=== PATIENT | female | born 1970 | race Caucasian/White ===

== ENCOUNTER → 2016-12-10 | Outpatient (CLI) | payer BC ==
--- NOTE | ~2016-12-10 | MY29 ---
[facility] of [facility] RADIOLOGY TEXT RESULTS PATIENT: CHARLIE COELLO LOCATION: [facility] : 74 UNIT #: [id number] AGE: [address]: Cecilia Ardon SEX: F ORDER DR: [id number] [facility] [address] [place], [place] [address] [id number] O MR#: [id number] Acc #: [id number] NAME: CHARLIE COELLO : 1970 SEX: F STUDY DATE/TIME: 12/10/2016 9:41 UNIT: [facility] ROOM: STUDY DESCRIPTION: MY STEVE SCREENING W/ CAD BILAT Attending Physician: Cecilia Ardon A.P.R.N. Ordering Physician: Cecilia Ardon A.P.R.N. Primary Care Physician: Cecilia Ardon A.P.R.N. MEDICAL IMAGING REPORT This report is preliminary unless electronic signature is present EXAM Digital screening mammogram, 12/10/2016, [facility]. HISTORY 46-year-old woman positive family history, grandmother postmenopausal. New baseline. COMPARISON None available. FINDINGS Digital imaging of each breast was completed utilizing a two-view examination of each breast in craniocaudal and mediolateral-oblique projections. Review and interpretation of digital mammograms include a second review in conjunction with FDA-approved CAD device. There is a normal parenchymal presentation bilaterally consistent with the patient's age. There are no breast masses imaged and no parenchymal asymmetry is visualized. There are no suspicious microcalcifications and I see no focal architectural disturbance. IMPRESSION Negative screening digital mammogram. One-year followup recommended. Patients over the age of 40 are entered into a reminder system with target due date for the next mammogram. A result letter will also be sent to the patient. BIRADS: 1 Negative Dictated by... Param Quarles M.D. [facility] RADIOLOGY TEXT RESULTS PATIENT: CHARLIE COELLO LOCATION: [facility] : 74 UNIT #: [id number] AGE: [address]: Cecilia Ardon SEX: F ORDER DR: THIS IS AN ELECTRONICALLY VERIFIED REPORT Param Quarles M.D. at 12/10/2016 10:43 AM Shane TD: 12/10/2016 10:06 JOB #: [id number] MEDICAL IMAGING REPORT Page 1 of 1 COPY
== END | disposition home or self-care (01) ==
LOC: CWCC 09:15
DX: Z12.31 Encounter for screening mammogram for malignant neoplasm of breast (principal); Z80.3 Family history of malignant neoplasm of breast
CPT/HCPCS: G0202